=== PATIENT | male | born 1985 | race Caucasian/White ===

== ENCOUNTER 2018-11-24 19:03 | Emergency (ER) | payer OTHER ==
[~2018-11-24] VITALS: Ht 180.3 cm; Wt 77.1 kg
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
[2018-11-24] MEDS ORDERED: HYDROcodone/Acetamin 5/325 tab ORAL ONE (20:00)
--- NOTE | 2018-11-24 20:00 | NUR ---
ED Nurse Note: patient went to CT in stable condition
--- NOTE | 2018-11-24 20:17 | NUR ---
ED Nurse Note: patient came back from CT
[2018-11-24 21:11] VITALS: BP 113/66
[2018-11-24] MEDS ORDERED: LIDODERM700 M1 TOPIC (21:13)
[2018-11-24] MEDS ORDERED: ROBAXIN-750750 MG PO (21:13)
[2018-11-24] MEDS ORDERED: IBUPROFEN600 MG ORAL (21:13)
[2018-11-24 21:28] VITALS: BP 113/66
--- NOTE | 2018-11-24 21:28 | NUR ---
ER DISCHARGE NOTE: Patient is cleared to be discharged per LES ROPER, pt is aox4, on room air, with stable vital signs. pt was given dc and prescription instructions, pt was able to verbalize understanding, pt id band removed. pt is able to ambulate with steady gait. pt took all belongings. patient is in the waiting room waiting for aunt, per pt, aunt will be here very soon
--- NOTE | 2018-11-25 10:10 | Diagnostic Imaging Report ---
Indication: Neck pain. Technique: Continuous helical imaging of the cervical spine was obtained transaxially from the skull base to the upper thoracic spine. 2-D coronal and sagittal reformatted images were obtained. Automatic Exposure Control was utilized. Total Dose length Product (DLP): 256.[address] Dose Index Volume (CTDIvol): 11.3 mGy Comparison: None Findings: There is no evidence of an acute fracture. There is reversal cervical lordosis which may be due to muscle spasm. Atlantoaxial alignment appears normal. Height and configuration of the vertebral bodies and intervertebral discs are within normal limits. Uncovertebral joints and facets are unremarkable. There is no soft tissue swelling. Impression: Negative for acute injury. Reversal cervical lordosis may be due to muscle spasm. [facility] has communicated the preliminary results to the Emergency Department. Their findings are largely concordant with this report. The CT scanner at [facility] is accredited by the [employer] and the scans are performed using dose optimization techniques as appropriate to a performed exam including Automatic Exposure control.
--- NOTE | 2018-11-25 10:14 | Diagnostic Imaging Report ---
Indication: Headache Technique: Contiguous 5 mm thick transaxial imaging of the head obtained in a Siem[employer] Sensation [address] scanner[address] Soft tissue and bone windows generated. Automatic Exposure Control was utilized. Total Dose length Product (DLP): 1354.[address] Dose Index Volume (CTDIvol): 70.38 mGy Comparison: none Findings: The size and configuration of the cortical sulci, basal cisterns, and ventricles are within normal limits for age. There is no mass effect, midline shift, or edema identified. There is no evidence of acute hemorrhage or abnormal intra-axial or extra-axial fluid collections. The bones and soft tissues are unremarkable. Impression: No mass effect, edema or acute bleed. [facility] has communicated the preliminary results to the Emergency Department. Their findings are largely concordant with this report. The CT scanner at [facility] is accredited by the [employer] and the scans are performed using dose optimization techniques as appropriate to a performed exam including Automatic Exposure control.
== END 2018-11-24 21:28 | disposition home or self-care (01) ==
LOC: EDBD 19:03 → EMR 19:19
DX: S16.1XXA Strain of muscle, fascia and tendon at neck level, initial encounter (principal); R51 Headache; R11.10 Vomiting, unspecified; V43.52XA Car driver injured in collision with other type car in traffic accident, initial encounter; Y92.410 Unspecified street and highway as the place of occurrence of the external cause; Z91.030 Bee allergy status; Z91.012 Allergy to eggs
CPT/HCPCS: 70450; 72125; 99284